=== PATIENT | female | born 1985 | race Caucasian/White ===

== ENCOUNTER 2016-08-19 06:10 | Inpatient (IN) | payer BC, SELFPAY ==
[~2016-08-19] VITALS: Ht 172.7 cm; Wt 78.5 kg
--- NOTE | ~2016-08-19 | OR ---
PATIENT'S NAME: BRENDA SNELL [facility] AGE: 30 Y [address] ROOM: [address] [address] LOCATION: GOBS ADMIT DATE: 08/19/2016 OR/Procedure Report DISCHARGE DATE: FAMILY PHYSICIAN: KERRI VITAL MD ATTENDING PHYSICIAN: Chetna Lyn SURGEON: Chetna Lyn MD QM NURSE: DATE OF PROCEDURE: 08/19/2016 This is a 3, para 1-0-1 woman, who presents at 39 weeks gestation with spontaneous rupture of membranes in labor. She presents and she is 8 cm dilated. Group B strep testing was negative. Quad screening was negative. care was uncomplicated. This is an in vitro fertilization . An intrathecal was placed. She progressed on to complete and with pushing she delivered spontaneously. She delivered the vertex over a midline episiotomy. Shoulders and body are easily delivered. Baby boy lets out a spontaneous cry. He was placed on maternal abdomen. His cord was doubly clamped and cut. He received of 8 and 9. Weight 7 pounds 5 ounces. Three-vessel cord was noted. Placenta did not want to come at first and then the cord and bottom part of the placenta started tear part. I did a manual extraction of the membranes at some of the placenta and then the rest of the placenta came out very easily. I did a manual sweep of the uterus and the uterus was entirely empty and really is not bleeding much. I will give her 2 g of Ancef to cover for any bacteria. The midline episiotomy was repaired in the usual fashion with 2-0 chromic. Cervix vagina was intact. Mom and baby are doing well in recovery. CHETNA LYN MD KHP/modl /[id number] d: 08/19/16931 t: 09/02/16731, OPERATIVE SUMMARY
[~2016-08-19 06:10] MED LIST: PERCOCET 5-3251 EACH PO; PRENATAL 1+1)(P1 TAB PO
[2016-08-19 07:01] LABS: BASOPHIL % 0.6 %; EOSINOPHIL # 0.1 K/uL (0.0-0.5); HEMATOCRIT 38.5 % (33.0-46.0); IMMATURE GRANULOCYTE % 0.1 %; LYMPHOCYTE # 2.6 K/uL (0.8-4.0); LYMPHOCYTE % 36.5 %; MCH 33.1 pg (27.0-34.0); MCHC 33.8 gm/dL (32.0-36.5); MONOCYTE # 0.8 K/uL (0.0-1.0); MONOCYTE % 10.4 %; MPV 12.1 fl (9.4-12.4); NEUTROPHIL # (ANC) 3.7 K/uL (1.8-7.8); NEUTROPHIL % 51.4 %; NRBC % 0 /100WBC (0-0.00); PLATELET COUNT 123 K/uL (150-450); RDW-CV 13.2 % (11.9-14.6); WBC 7.2 K/uL (4.0-11.0)
[2016-08-19 07:02] LABS: RBC 3.93 M/uL (3.50-5.00)
--- NOTE | 2016-08-19 17:52 | NUR ---
PERNIUM SWOLLEN, STRAIGHT CATHED REMOVED AT 1400, 1400MLS URINE. VOIDED X2 SINCE, USING TEA PADS. SALINE LOCK INTACT TO RT HAND. ANCEF GIVEN AT 1000 FOR MANUAL REMOVAL OF PLACENTA.
--- NOTE | 2016-08-20 04:39 | NUR ---
VSS. FUNDUS FIRM, EVEN, 1 DOWN. SMALL FLOW. MOTRIN LAST AT 2112. BREAST FEEDING WELL. POSSIBLY GOING HOME TODAY.
[2016-08-20 07:02] LABS: BASOPHIL # 0.1 K/uL (0.0-0.2); BASOPHIL % 0.7 %; EOSINOPHIL # 0.1 K/uL (0.0-0.5); EOSINOPHIL % 1.3 %; HEMATOCRIT 31.4 % (33.0-46.0); HEMOGLOBIN 10.6 g/dL (11.0-15.0); IMMATURE GRANULOCYTE % 0.4 %; LYMPHOCYTE # 2.5 K/uL (0.8-4.0); LYMPHOCYTE % 35.5 %; MCHC 33.8 gm/dL (32.0-36.5); MCV 97.8 fl (83.0-98.0); MONOCYTE # 0.6 K/uL (0.0-1.0); MONOCYTE % 8.3 %; MPV 11.1 fl (9.4-12.4); NEUTROPHIL # (ANC) 3.7 K/uL (1.8-7.8); NEUTROPHIL % 53.8 %; NRBC % 0 /100WBC (0-0.00); PLATELET COUNT 100 K/uL (150-450); RBC 3.21 M/uL (3.50-5.00); RDW-CV 13.2 % (11.9-14.6); WBC 6.9 K/uL (4.0-11.0)
[2016-08-20] MEDS ORDERED: MOTRIN800 MG PO (11:57)
[2016-08-20] MEDS ORDERED: PERCOCET 5-3251 EACH PO (11:59)
== END 2016-08-20 17:15 | disposition disaster alternative care site (69) | DRG 774 ==
LOC: GOBS 06:10
PROVIDERS: ADMIT Obstetrics & Gynecology
PROC: 10E0XZZ Delivery of Products of Conception, External Approach (ICD-10-PCS; principal; 2016-08-19)
PROC: 0W8NXZZ Division of Female Perineum, External Approach (ICD-10-PCS; principal; 2016-08-19)
DX: O73.1 Retained portions of placenta and membranes, without hemorrhage (principal); Z37.0 Single live birth; Z3A.39 39 weeks gestation of pregnancy
CPT/HCPCS: J0690; J2001; J2590; J3010; J7120